=== PATIENT | male | born 1985 | race Caucasian/White ===

== ENCOUNTER 2017-03-11 09:11 | Emergency (ER) | payer OTHER ==
[~2017-03-11] VITALS: Ht 167.6 cm; Wt 83.5 kg
[2017-03-11 09:17] VITALS: BP 131/72
== END 2017-03-11 10:53 | disposition home or self-care (01) ==
LOC: ED 09:11
DX: S61.012A Laceration without foreign body of left thumb without damage to nail, initial encounter (principal); W31.2XXA Contact with powered woodworking and forming machines, initial encounter; Y93.89 Activity, other specified; Y99.8 Other external cause status; Y92.89 Other specified places as the place of occurrence of the external cause
CPT/HCPCS: J2001

== ENCOUNTER 2017-03-13 15:24 | Emergency (ER) | payer OTHER ==
[~2017-03-13] VITALS: Ht 170.2 cm; Wt 83.1 kg
[2017-03-13 15:39] VITALS: BP 140/78
== END 2017-03-13 17:55 | disposition home or self-care (01) ==
LOC: ED 15:24
DX: S61.012D Laceration without foreign body of left thumb without damage to nail, subsequent encounter (principal); Z79.2 Long term (current) use of antibiotics; Z88.6 Allergy status to analgesic agent; W45.8XXD Other foreign body or object entering through skin, subsequent encounter; Y92.89 Other specified places as the place of occurrence of the external cause; Y99.8 Other external cause status

== ENCOUNTER 2017-03-21 10:01 | Emergency (ER) | payer OTHER ==
[~2017-03-21] VITALS: Ht 170.2 cm; Wt 82.5 kg
[2017-03-21 11:27] VITALS: BP 144/72
== END 2017-03-21 11:27 | disposition home or self-care (01) ==
LOC: ED 10:01
DX: S61.012D Laceration without foreign body of left thumb without damage to nail, subsequent encounter (principal); X58.XXXD Exposure to other specified factors, subsequent encounter; Y99.8 Other external cause status; Y92.89 Other specified places as the place of occurrence of the external cause
CPT/HCPCS: J2001